=== PATIENT | female | born 1970 | race Caucasian/White ===

== ENCOUNTER 2017-11-26 09:53 | Emergency (ER) | payer SELFPAY, OTHER ==
[2017-11-26] MEDS: IBUPROFEN 600 MG TAB PO (11:17)
[2017-11-26] MEDS: LIDOCAINE 1% (MDV) 10 ML INJ INJ (11:18)
== END 2017-11-26 13:14 | disposition home or self-care (01) ==
LOC: FTE 09:53
DX: L02.414 Cutaneous abscess of left upper limb (principal)
CPT/HCPCS: 10060; 99282-25